=== PATIENT | male | born 1960 | race Caucasian/White ===

== ENCOUNTER 2017-10-04 17:25 | Emergency (ER) | payer SELFPAY ==
[2017-10-04] MEDS ORDERED: Acetaminophen/Codeine 300-30 MG Tab PO ONE (18:27)
--- NOTE | 2017-10-04 18:33 | EDM.PDOC ---
ED HPI GENERAL MEDICAL PROBLEM - General Chief Complaint: Upper Extremity Injury/Pain Stated Complaint: LEFT ARM INJURY Time Seen by Provider: 10/04/17 18:20 Source of Information: Reports: Patient, RN History Limitations: Reports: No Limitations - History of Present Illness INITIAL COMMENTS - FREE TEXT/NARRATIVE: 56 yo male here with L elbow pain after a fall. Pain is increased with attempts at elbow flexion, less with extension. Has swelling at the olecranon since the injury which is new. No numbness of the hand. Has a pHx of muscle tears requiring surgery. Work related injury. Onset: Today Onset Date: 10/04/17 Duration: Minutes: Location: Reports: Upper Extremity, Left Quality: Reports: Ache Severity: Moderate Improves with: Reports: Rest Worsens with: Reports: Movement Context: Reports: Trauma Associated Symptoms: Reports: No Other Symptoms Treatments [employer]: Reports: Other (see below) (none) Left Elbow Pain Score (Numeric/FACES): 6 - Related Data Allergies Allergy/AdvReac Type Severity Reaction Status Date / Time NSAIDS (Non-Steroidal Allergy Other Verified 10/04/17 17:53 Anti-Inflamma oxycodone Allergy Nausea Verified 10/04/17 17:53 Home Meds: Home Meds NK [No Known Home Meds] 10/04/17 [History] Past Medical History Other Cardiovascular History: excess fluid around heart, 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 Other Dermatologic History: lesions being removed today on back, neck and abdomen - Past Surgical History Other HEENT Surgeries/Procedures: middle ear surgery Other Cardiovascular Surgeries/Procedures: fluid drained off around heart Musculoskeletal Surgical History: Reports: Arthroscopic Knee Other Musculoskeletal Surgeries/Procedures:: right elbow surgery, left elbow surgery Social & Family History - Tobacco Use Smoking Status *Q: Never Smoker - Recreational Drug Use Recreational Drug Use: No Review of Systems - Review of Systems Review Of Systems: See Below Constitutional: Reports: No Symptoms Respiratory: Reports: No Symptoms Cardiovascular: Reports: No Symptoms GI/Abdominal: Reports: No Symptoms Genitourinary: Reports: No Symptoms Musculoskeletal: Reports: Arm Pain (L elbow) Skin: Reports: No Symptoms Neurological: Reports: No Symptoms ED EXAM, GENERAL - Physical Exam Exam: See Below Exam Limited By: No Limitations General Appearance: Alert, WD/WN, No Apparent Distress Eye Exam: Bilateral Eye: Normal Inspection Ears: Normal External Exam, Normal Canal, Hearing Grossly Normal Ear Exam: Bilateral Ear: Auricle Normal, Canal Normal Nose: Normal Inspection, Normal Mucosa, No Blood Throat/Mouth: Normal Inspection, Normal Lips, Normal Voice, No Airway Compromise Head: Atraumatic, Normocephalic Neck: Normal Inspection, Supple Respiratory/Chest: No Respiratory Distress, No Accessory Muscle Use Cardiovascular: Regular Rate, Rhythm, No Edema Extremities: Arm Pain (L elbow), Limited Range of Motion (L elbow), Other ( Olecranon if quite swollen, palpable defect at attachment of triceps at olecranon. ). No: Increased Warmth Neurological: Alert, Oriented, CN II-XII Intact, Normal Cognition Psychiatric: Normal Affect, Normal Mood Skin Exam: Warm, Dry, Intact, Normal Color, No Rash Course - Vital Signs Text/Narrative:: Called [facility], Last Recorded V/S: Last Vital Signs Temp 36.4 C 10/04/17 17:49 Pulse 88 10/04/17 17:49 Resp 14 10/04/17 17:49 BP 148/94 H 10/04/17 17:49 Pulse Ox 98 10/04/17 17:49 - Orders/Labs/Meds Orders: Active Orders 24 hr Category Date Time Status Elbow wo Cont Lt [CT] Stat Exams 10/04/17 18:27 Taken Meds: Medications Discontinued Medications Generic Name Dose Route Start Last Admin Trade Name Willa PRN Reason Stop Dose Admin Acetaminophen/Codeine Phosphate 2 tab 10/04/17 18:27 10/04/17 18:32 Tylenol With Codeine No.3 300mg/30mg PO 10/04/17 18:28 2 tab ONETIME ONE Administration - Radiology Interpretation Free Text/Narrative:: CT of L elbow-pathology noted, possible triceps tear. MRI suggested. CT Results Date: 10/04/17 CT Results Time: 19:55 Departure - Departure Time of Disposition: 20:20 Disposition: Home, Self-Care 01 Condition: Fair Clinical Impression: Laceration of muscle, fascia and tendon of triceps, left arm, initial encounter - Discharge Information Referrals: PCP,None [Primary Care Provider] - Forms: ED Department Discharge - My Orders Last 24 Hours: My Active Orders 10/04/17 18:27 Elbow wo Cont Lt [CT] Stat - Assessment/Plan Last 24 Hours: My Active Orders 10/04/17 18:27 Elbow wo Cont Lt [CT] Stat
[2017-10-04 20:25] VITALS: BP 128/86
== END 2017-10-04 20:38 | disposition home or self-care (01) ==
LOC: JP.ED 17:25
DX: S46.922A Laceration of unspecified muscle, fascia and tendon at shoulder and upper arm level, left arm, initial encounter (principal); Z88.5 Allergy status to narcotic agent; W19.XXXA Unspecified fall, initial encounter
CPT/HCPCS: 73200; 99284; A9270; 99283

== ENCOUNTER 2024-08-01 06:35 | Day surgery (SDC) | payer OTHER ==
[2024-08-01] MEDS ORDERED: fentaNYL 50 MCG/ML SDV ONE (07:50)
[2024-08-01] MEDS ORDERED: Midazolam 1 MG/ML 2 ML SDV ONE (07:50)
[2024-08-01] MEDS ORDERED: Propofol 200 MG/20 ML SDV ONE ×2 (07:50→08:37)
[2024-08-01] MEDS: Lactated Ringers 1,000 ML IV SCH (07:53)
[2024-08-01 10:03] VITALS: BP 147/87; PULSE 78
== END 2024-08-01 10:41 | disposition home or self-care (01) ==
LOC: JP.SDS 06:35
PROVIDERS: ATTEND Family Medicine
DX: K92.1 Melena (principal); K64.4 Residual hemorrhoidal skin tags; K64.8 Other hemorrhoids; K61.1 Rectal abscess
CPT/HCPCS: 45378; J2250; J2704; J3010; J7120